=== PATIENT | male | born 1950 | race Caucasian/White ===

== ENCOUNTER 2017-09-18 23:45 | Inpatient (IN) | payer MEDICARE, MEDICAID ==
[~2017-09-18] VITALS: Ht 172.7 cm; Wt 78.5 kg
[2017-09-19 00:58] LABS: BASOPHILS 0.5 % (0-2); EOSINOPHILS 6.5 % (0-7); HEMATOCRIT 40.1 % (42.0-54.0); HEMOGLOBIN 13.3 g/dL (13.5-17.5); IMMATURE GRANULOCYTES 0.1 % (0-5); MCHC 33.2 g/dL (31.0-37.0); MCV 87.4 fL (80.0-100.0); MEAN PLATELET VOLUME 10.7 fL (7.4-10.4); MONOCYTES 9.7 % (2-11); NEUTROPHILS 57.2 % (40-80); PLATELET COUNT 240 10x3/uL (130-400); RBC 4.59 10x6/uL (4.20-6.10); RDW 14.2 % (11.5-14.5); WBC 7.4 10x3/uL (4.8-10.8)
[2017-09-19 01:15] LABS: ALBUMIN 3.8 g/dL (3.4-5.0); ALKALINE PHOSPHATASE 63 U/L (46-116); ALT (SGPT) 31 U/L (10-68); CALCIUM 8.8 mg/dL (8.5-10.1); CARBON DIOXIDE 23.2 mmol/L (21.0-32.0); CHLORIDE - SERUM 104 mmol/L (98-107); CREATININE - SERUM 1.1 mg/dL (0.6-1.3); PROTEIN - SERUM 7.6 g/dL (6.4-8.2); SODIUM 140 mmol/L (136-145); UREA NITROGEN 19 mg/dL (7-18); eGFR NON AFRICAN AMERICAN 71 mL/min (90-120)
[2017-09-19 01:16] LABS: CALC OSMOLALITY 279 mosm/kg (275-300); GLUCOSE 73 mg/dL (74-106); POTASSIUM - SERUM 2.9 mmol/L (3.5-5.1)
[2017-09-19 01:34] LABS: AMYLASE - SERUM 139 U/L (25-115); CREATINE KINASE 276 UL (21-232); LIPASE 1216 U/L (73-393); TROPONIN-I < 0.017 ng/mL (0.000-0.060)
[2017-09-19 01:37] LABS: CKMB 4.5 U/L (0.0-3.6)
[2017-09-19 08:29] LABS: APPEARANCE CLEAR (CLEAR); BILIRUBIN NEGATIVE (NEGATIVE); COLOR YELLOW (YELLOW); GLUCOSE NEGATIVE (NEGATIVE); KETONE NEGATIVE (NEGATIVE); NITRITE NEGATIVE (NEGATIVE); PROTEIN NEGATIVE (NEGATIVE); SPECIFIC GRAVITY 1.015 (1.005-1.020); UROBILINOGEN NORMAL (NORMAL)
[2017-09-19 11:38] LABS: LDL-HDL RATIO 4.4 ratio (1.5-3.5)
[2017-09-20 01:38] VITALS: BP 140/72
[2017-09-20 03:48] VITALS: BP 140/72; BMI 26.3
[2017-09-20] MEDS ORDERED: FENOFIBRATE160 MG PO (03:58)
[2017-09-20] MEDS ORDERED: BAYER CHEWABLE81 MG PO (03:58)
[2017-09-20] MEDS ORDERED: LISINOPRIL5 MG PO (03:58)
[2017-09-20] MEDS ORDERED: MIRAPEX ER0.75 MG PO (04:00)
[2017-09-20] MEDS ORDERED: LYRICA75 MG PO (04:01)
[2017-09-20] MEDS ORDERED: BASAGLAR K100 UNIT/1 SC (04:11)
[2017-09-20 05:21] VITALS: BP 135/57
[2017-09-20 06:43] LABS: BASOPHILS 0.8 % (0-2); EOSINOPHILS 8.3 % (0-7); HEMATOCRIT 40.9 % (42.0-54.0); HEMOGLOBIN 13.2 g/dL (13.5-17.5); IMMATURE GRANULOCYTES 0.2 % (0-5); LYMPHOCYTES 37.6 % (15-50); MCH 28.9 pg (26.0-34.0); MCHC 32.3 g/dL (31.0-37.0); MEAN PLATELET VOLUME 10.7 fL (7.4-10.4); MONOCYTES 11.1 % (2-11); PLATELET COUNT 237 10x3/uL (130-400); RBC 4.56 10x6/uL (4.20-6.10); RDW 14.4 % (11.5-14.5); WBC 6.2 10x3/uL (4.8-10.8)
[2017-09-20 06:44] LABS: MCV 89.7 fL (80.0-100.0)
[2017-09-20 07:04] LABS: ALBUMIN 3.3 g/dL (3.4-5.0); ALKALINE PHOSPHATASE 61 U/L (46-116); ALT (SGPT) 27 U/L (10-68); BILIRUBIN - TOTAL 0.61 mg/dL (0.2-1.3); CALCIUM 8.8 mg/dL (8.5-10.1); CARBON DIOXIDE 22.7 mmol/L (21.0-32.0); CHLORIDE - SERUM 106 mmol/L (98-107); PROTEIN - SERUM 6.9 g/dL (6.4-8.2); SODIUM 139 mmol/L (136-145); eGFR NON AFRICAN AMERICAN 79 mL/min (90-120)
[2017-09-20 07:05] LABS: CALC OSMOLALITY 278 mosm/kg (275-300); GLUCOSE 132 mg/dL (74-106); UREA NITROGEN 9 mg/dL (7-18)
[2017-09-20 08:45] VITALS: BP 136/66
[2017-09-20 11:02] VITALS: Ht 172.7 cm; Wt 78.5 kg
[2017-09-20 20:00] VITALS: BP 156/76
[2017-09-21 04:00] VITALS: BP 128/76
[2017-09-21 05:15] LABS: BASOPHILS 1.4 % (0-2); EOSINOPHILS 8.7 % (0-7); HEMATOCRIT 39.6 % (42.0-54.0); HEMOGLOBIN 13.3 g/dL (13.5-17.5); IMMATURE GRANULOCYTES 0.3 % (0-5); LYMPHOCYTES 36.1 % (15-50); MCH 29.4 pg (26.0-34.0); MCHC 33.6 g/dL (31.0-37.0); MEAN PLATELET VOLUME 11.6 fL (7.4-10.4); MONOCYTES 9.8 % (2-11); NEUTROPHILS 43.7 % (40-80); PLATELET COUNT 213 10x3/uL (130-400); RBC 4.53 10x6/uL (4.20-6.10); RDW 14.1 % (11.5-14.5); WBC 5.8 10x3/uL (4.8-10.8)
[2017-09-21 05:19] LABS: MCV 87.4 fL (80.0-100.0)
[2017-09-21 05:34] LABS: ALBUMIN 3.5 g/dL (3.4-5.0); ALKALINE PHOSPHATASE 63 U/L (46-116); ALT (SGPT) 28 U/L (10-68); AMYLASE - SERUM 51 U/L (25-115); CALC OSMOLALITY 278 mosm/kg (275-300); CALCIUM 8.8 mg/dL (8.5-10.1); CARBON DIOXIDE 22.6 mmol/L (21.0-32.0); CHLORIDE - SERUM 103 mmol/L (98-107); CREATININE - SERUM 0.9 mg/dL (0.6-1.3); GLUCOSE 170 mg/dL (74-106); LIPASE 285 U/L (73-393); POTASSIUM - SERUM 3.8 mmol/L (3.5-5.1); PROTEIN - SERUM 7.1 g/dL (6.4-8.2); SODIUM 138 mmol/L (136-145); UREA NITROGEN 11 mg/dL (7-18); eGFR NON AFRICAN AMERICAN 89 mL/min (90-120)
[2017-09-21 11:02] VITALS: BP 144/75
== END 2017-09-21 11:27 | disposition home or self-care (01) | DRG 440 ==
LOC: D.ER 23:45 → D.M2 09-19 03:30 → D.EDHOLD 09-19 03:30 → D.M2 09-19 18:42
PROVIDERS: Family Medicine; Internal Medicine Nephrology
DX: K85.90 Acute pancreatitis without necrosis or infection, unspecified (principal); F10.10 Alcohol abuse, uncomplicated; E87.6 Hypokalemia; F12.90 Cannabis use, unspecified, uncomplicated

== ENCOUNTER 2017-12-15 14:01 | Emergency (ER) | payer MEDICARE, MEDICAID ==
[~2017-12-15] VITALS: Ht 172.7 cm; Wt 77.3 kg
[~2017-12-15 14:01] MED LIST: BASAGLAR K100 UNIT/1 SC; BAYER CHEWABLE81 MG PO; FENOFIBRATE160 MG PO; LISINOPRIL5 MG PO; LYRICA75 MG PO; MIRAPEX ER0.75 MG PO
[2017-12-15 14:19] VITALS: Ht 172.7 cm; Wt 77.3 kg
[2017-12-15 14:57] LABS: BASOPHILS 0.5 % (0-2); EOSINOPHILS 5.6 % (0-7); HEMATOCRIT 39.7 % (42.0-54.0); HEMOGLOBIN 13.5 g/dL (13.5-17.5); IMMATURE GRANULOCYTES 0.1 % (0-5); LYMPHOCYTES 28.8 % (15-50); MCH 29.5 pg (26.0-34.0); MCV 86.7 fL (80.0-100.0); MEAN PLATELET VOLUME 10.5 fL (7.4-10.4); MONOCYTES 7.3 % (2-11); NEUTROPHILS 57.7 % (40-80); PLATELET COUNT 209 10x3/uL (130-400); RBC 4.58 10x6/uL (4.20-6.10); RDW 13.9 % (11.5-14.5); WBC 7.5 10x3/uL (4.8-10.8)
[2017-12-15 15:11] LABS: ALBUMIN 3.6 g/dL (3.4-5.0); ALKALINE PHOSPHATASE 58 U/L (46-116); ALT (SGPT) 21 U/L (10-68); BILIRUBIN - TOTAL 0.53 mg/dL (0.2-1.3); CALC OSMOLALITY 275 mosm/kg (275-300); CARBON DIOXIDE 21.9 mmol/L (21.0-32.0); CHLORIDE - SERUM 104 mmol/L (98-107); CREATININE - SERUM 1.1 mg/dL (0.6-1.3); POTASSIUM - SERUM 3.7 mmol/L (3.5-5.1); PROTEIN - SERUM 7.1 g/dL (6.4-8.2); SODIUM 138 mmol/L (136-145); UREA NITROGEN 15 mg/dL (7-18); eGFR NON AFRICAN AMERICAN 71 mL/min (90-120)
[2017-12-15 15:12] LABS: GLUCOSE 82 mg/dL (74-106)
[2017-12-15 15:14] LABS: AMYLASE - SERUM 44 U/L (25-115); LIPASE 195 U/L (73-393)
[2017-12-15 15:15] LABS: TROPONIN-I < 0.017 ng/mL (0.000-0.060)
[2017-12-15 17:07] LABS: APPEARANCE CLEAR (CLEAR); BILIRUBIN NEGATIVE (NEGATIVE); COLOR YELLOW (YELLOW); GLUCOSE NEGATIVE (NEGATIVE); KETONE SMALL mg/dL (NEGATIVE); NITRITE NEGATIVE (NEGATIVE); PROTEIN NEGATIVE (NEGATIVE); SPECIFIC GRAVITY 1.005 (1.005-1.020); UROBILINOGEN NORMAL (NORMAL)
[2017-12-15] MEDS ORDERED: CARAFATE1 G PO (17:07)
[2017-12-15] MEDS ORDERED: ZANTAC300 MG PO (17:07)
[2017-12-15] MEDS ORDERED: PROTONIX40 MG PO (17:07)
[2017-12-15 17:33] VITALS: BP 120/64
== END 2017-12-15 17:35 | disposition home or self-care (01) ==
LOC: D.ER 14:01
PROVIDERS: Family Medicine
DX: K29.00 Acute gastritis without bleeding (principal); K29.90 Gastroduodenitis, unspecified, without bleeding; R10.9 Unspecified abdominal pain; E11.9 Type 2 diabetes mellitus without complications; I10 Essential (primary) hypertension

== ENCOUNTER 2018-01-14 12:26 | Emergency (ER) | payer MEDICARE, MEDICAID ==
[~2018-01-14] VITALS: Ht 172.7 cm; Wt 79.1 kg
[~2018-01-14 12:26] MED LIST changes: +CARAFATE1 G PO; +PROTONIX40 MG PO; +ZANTAC300 MG PO
[2018-01-14 12:34] VITALS: Ht 172.7 cm; Wt 79.1 kg
[2018-01-14] MEDS ORDERED: TORADOL10 MG PO (15:15)
[2018-01-14 15:31] VITALS: BP 152/92
== END 2018-01-14 15:31 | disposition home or self-care (01) ==
LOC: D.ER 12:26
DX: R07.81 Pleurodynia (principal); E11.9 Type 2 diabetes mellitus without complications; I10 Essential (primary) hypertension

== ENCOUNTER 2018-08-06 17:47 | Emergency (ER) | payer MEDICARE, MEDICAID ==
[~2018-08-06] VITALS: Ht 172.7 cm; Wt 77.3 kg
[~2018-08-06 17:47] MED LIST changes: +TORADOL10 MG PO
[2018-08-06 17:51] VITALS: Ht 172.7 cm; Wt 77.3 kg
[2018-08-06 19:30] LABS: BASOPHILS 1.3 % (0-2); EOSINOPHILS 6.3 % (0-7); HEMATOCRIT 42.3 % (42.0-54.0); HEMOGLOBIN 14.8 g/dL (13.5-17.5); IMMATURE GRANULOCYTES 0.4 % (0-5); LYMPHOCYTES 35.4 % (15-50); MCH 30.6 pg (26.0-34.0); MCV 87.4 fL (80.0-100.0); MEAN PLATELET VOLUME 10.4 fL (7.4-10.4); MONOCYTES 12.3 % (2-11); NEUTROPHILS 44.3 % (40-80); PLATELET COUNT 180 10x3/uL (130-400); RBC 4.84 10x6/uL (4.20-6.10); RDW 13.8 % (11.5-14.5); WBC 4.8 10x3/uL (4.8-10.8)
[2018-08-06 20:22] LABS: ALBUMIN 3.8 g/dL (3.4-5.0); ANION GAP 16.7 mmol/L (8-16); BILIRUBIN - TOTAL 0.34 mg/dL (0.2-1.3); CALCIUM 8.7 mg/dL (8.5-10.1); CARBON DIOXIDE 23.5 mmol/L (21.0-32.0); CREATININE - SERUM 1.1 mg/dL (0.6-1.3); POTASSIUM - SERUM 4.2 mmol/L (3.5-5.1); PROTEIN - SERUM 7.8 g/dL (6.4-8.2)
[2018-08-06] MEDS ORDERED: ACETAMINOPHEN500 M1 PO (20:55)
[2018-08-06] MEDS ORDERED: KEFLEX500 MG PO (20:55)
[2018-08-06] MEDS ORDERED: IBUPROFEN800 MG PO (20:55)
[2018-08-06] MEDS ORDERED: CYCLOBENZAPRINE10 MG PO (20:57)
[2018-08-06] MEDS ORDERED: CLEOCIN HCL300 MG PO (20:57)
[2018-08-06 22:25] VITALS: BP 140/90
== END 2018-08-06 22:26 | disposition home or self-care (01) ==
LOC: D.ER 17:47
PROVIDERS: Family Medicine
DX: R59.0 Localized enlarged lymph nodes (principal); L03.811 Cellulitis of head [any part, except face]; E11.9 Type 2 diabetes mellitus without complications; I10 Essential (primary) hypertension